=== PATIENT | female | born 1930 | race Caucasian/White ===

== ENCOUNTER → 2017-02-22 | Day surgery (SDC) | payer MEDICARE, BC ==
[~2017-02-22] MED LIST: ACETAMINOPHEN/HYDROcodone 325 MG/5 MG TAB ONE; BACITRACIN IM FOR SOLN 50,000 UNIT VIAL ONE; BUPIVACAINE/EPINEPHRINE 0.25% PF 30 ML VIAL ONE; GENTAMICIN SULFATE 80 MG/2 ML VIAL ONE; KETOROLAC TROMETHAMINE 30 MG/ML (IVP) VIAL IV PUSH ONE; LACTATED RINGER'S 1000 ML INJ 1,000 ML ONE; MORPHINE SULFATE 4 MG/ML INJ ONE; ONDANSETRON HCL 4 MG/2 ML VIAL IV PUSH ONE; PROPOFOL 100 MG/10 ML INJ IV ONE; SODIUM CHLOR 0.9% 250 ML INJ 250 ML IV ONE; SODIUM CHLORIDE 0.9% 20 ML VIAL ONE; VANCOMYCIN HCL 1000 MG VIAL ONE; ceFAZolin 2 GM PREMIX 50 ML ONE; ceFAZolin INJ 1,000 MG VIAL ONE
--- NOTE | 2017-02-22 09:21 | TN ---
cc: SANA DE JESUS DATE OF SURGERY: 02/22/2017 PREOPERATIVE DIAGNOSIS 1. Osteoarthritis of the right knee, medial compartment. 2. Chondromalacia patella. POSTOPERATIVE DIAGNOSIS 1. Osteoarthritis of the right knee, medial compartment. 2. Chondromalacia patella. PROCEDURE 1. Right knee unicompartmental replacement arthroplasty, medial compartment. 2. Partial patellectomy. SURGEON Sana De Jesus MD [employer] Black De Jesus MD ANESTHESIA General. ESTIMATED BLOOD LOSS 50 ccs. INDICATION This patient is an 86-year female who is having progressive varus deformity and pain in the medial aspect of her right knee. The patient had extensive conservative care including injections, altered activities, use of assistive gait aid in physical therapy. She continued to be painful to where she is now having difficulty with ambulation. She presents for surgical treatment. COMPONENTS Company: [employer]. Femur: Size 1 right medial, cemented, metal. Tibia: Size 2, 6.5 mm, all polyethylene, cemented. PROCEDURE The patient was brought to the operating room and anesthetized in the supine position. The right leg was scrubbed with alcohol followed by Hibiclens, followed by Chloraprep and draped sterilely in the arthroscopy gan. Antibiotics were given within a 1 hour time window and a time-out was done. After exsanguination the tourniquet was inflated to 250 mmHg. An anterior and slightly medial incision was made centering over the medial facet of patella. A medial arthrotomy was performed. The medial facet of the patella was resected. Deep retractors allowed good visualization. The patient was down to bone on bone in the medial compartment both in the tibia and the femur. A medial osteophyte was noted. The posterior facet of the femur was resected with the oscillating saw using a sizing guide. The tibia was contoured freehand for a number one and eventually shifted to a #2 tibial component. The inlay was excellent. The femur was contoured freehand for a #1 femoral component. This was adjusted slightly. The proper resection was accomplished. A trial reduction showed excellent balancing in flexion and extension. The wound was irrigated copiously. A field block was used with 0.5% Marcaine with epinephrine. Methylmethacrylate was mixed on the back table. The components were cemented. Excessive cement was removed. The knee was brought into full extension. The tourniquet was let down. Hemostasis was controlled. A drain was brought through a separate stab incision. The arthrotomy was repaired with interrupted #2 Tycron suture, subcutaneous tissue with 2-0 Vicryl suture and skin with running intradermal 3-0 Vicryl followed by Benzoin and Steri-Strips. Sponge count, needle counts, instrument counts were all correct. The patient tolerated the procedure well and was taken to the recovery room in satisfactory condition. MD LIA Abreu/TLL /8:39 AM /9:10 AM
== END | disposition home or self-care (01) ==
LOC: ESDC 06:07
PROVIDERS: ATTEND Orthopaedic Surgery Orthopaedic Surgery of the Spine
DX: M17.11 Unilateral primary osteoarthritis, right knee (principal); M22.41 Chondromalacia patellae, right knee
CPT/HCPCS: 01400; 27446; C1776; J0690; J1580; J1885; J2270; J2405; J3010; J3370; J7050; J7120